=== PATIENT | female | born 1950 | race Caucasian/White ===

== ENCOUNTER → 2018-01-18 07:39 | Outpatient (CLI) | payer OTHER, MEDICARE, SELFPAY ==
[2018-01-18 09:11] LABS: Hemoglobin A1C 8.1 % (0.0-7.0)
[2018-01-19 19:41] LABS: Vitamin B12 851 pg/mL (232-1245); Vitamin D 25 Hydroxy 27.5 ng/mL (30.0-100.0)
== END ==
PROVIDERS: Visit Provider Internal Medicine Adolescent Medicine
DX: E53.8 Deficiency of other specified B group vitamins (principal); E55.9 Vitamin D deficiency, unspecified; E11.9 Type 2 diabetes mellitus without complications
CPT/HCPCS: 82607; 82652; 83036

== ENCOUNTER → 2018-07-09 07:07 | Outpatient (CLI) | payer OTHER, MEDICARE, SELFPAY ==
[2018-07-09 07:32] LABS: Basophils # 0.1 K/mm3 (0-0.2); Basophils % 0.7 % (0.1-2.0); Eosinophils # 0.2 K/mm3 (0.0-0.4); Eosinophils % 3.1 % (0.1-12.0); Hematocrit 45.7 % (37.0-47.0); Hemoglobin 14.9 g/dL (12.2-16.2); Lymphocytes % 28.9 % (10-50); Mean Corpuscular HGB Conc 32.6 g/dL (31.8-35.4); Mean Corpuscular Hemoglobin 27.9 pg (27.0-31.2); Mean Corpuscular Volume 85.6 fl (81-99); Mean Platelet Volume 7.1 fl (7.4-10.4); Monocytes # 0.4 K/mm3 (0.1-1.0); Neutrophils # 4.4 K/mm3 (1.8-7.8); Neutrophils % 62.2 % (37.0-80.0); Platelet Count 198 K/mm3 (142-424); Red Blood Count 5.34 M/mm3 (4.20-5.40); Red Cell Distribution Width 14.7 % (11.5-17.5); White Blood Count 7.1 K/mm3 (4.8-10.8)
[2018-07-09 09:37] LABS: Alanine Aminotransferase 94 U/L (12-78); Albumin Level 3.8 gm/dL (3.4-5.0); Albumin/Globulin Ratio 1.1 (1.1-1.8); Alkaline Phosphatase 78 U/L (46-116); Anion Gap 11.3 mEq/L (5-15); Aspartate Amino Transferase 58 U/L (15-37); Bilirubin,Total 0.4 mg/dL (0.2-1.0); Blood Urea Nitrogen 17 mg/dL (7-18); Calcium 9.6 mg/dL (8.5-10.1); Carbon Dioxide 32 mmol/L (21.0-32.0); Chloride 102 mmol/L (98-107); Creatinine,Serum 0.85 mg/dL (0.55-1.02); Estimated Glomerular Filt Rate 67 ml/min (>60); GFR (African American) 80 ML/MIN (>60); Globulin 3.6 gm/dl (1.3-3.2); Glucose 161 mg/dL (74-106); Potassium 4.3 mmoL/L (3.5-5.1); Sodium 141 mmol/L (136-145); Thyroid Stimulating Hormone 0.05 uIU/ml (0.358-3.740); Total Protein,Serum 7.4 gm/dL (6.4-8.2)
[2018-07-09 09:46] LABS: Hemoglobin A1C 7.3 % (0.0-7.0)
[2018-07-10 09:19] LABS: Vitamin D 25 Hydroxy 29.7 ng/mL (30.0-100.0)
== END ==
PROVIDERS: Visit Provider Internal Medicine Adolescent Medicine
DX: E78.5 Hyperlipidemia, unspecified (principal); E11.9 Type 2 diabetes mellitus without complications; E03.9 Hypothyroidism, unspecified; E55.9 Vitamin D deficiency, unspecified; M15.0 Primary generalized (osteo)arthritis
CPT/HCPCS: 36415; 80053; 82652; 83036; 84443; 85025

== ENCOUNTER → 2018-07-29 12:46 | Outpatient (CLI) | payer OTHER, MEDICARE, SELFPAY ==
--- NOTE | 2018-07-29 12:57 | XR_ITS ---
XR DEXA axial skeleton HISTORY: ITS.REASON: POSTMENOPAUSAL ORDERING PHYSICIAN: Kevin Dos Santos MD PATIENT AGE: 67 years COMPARISON: 05/27/2015 FINDINGS: The BMD measured at the Forearm Radius 33% is 0.881 g/cm squared with a T score of -0.1. This is considered Normal according to the World Health Organization criteria. Fracture risk is Low. The L1 L4 density has a T score of 1.6 unchanged from the previous exam.. IMPRESSION: Normal bone density.
== END ==
PROVIDERS: PCP Internal Medicine Adolescent Medicine; Visit Provider Internal Medicine Adolescent Medicine
DX: Z13.820 Encounter for screening for osteoporosis (principal); Z78.0 Asymptomatic menopausal state
CPT/HCPCS: 77080

== ENCOUNTER → 2018-11-18 07:04 | Outpatient (CLI) | payer OTHER, MEDICARE, SELFPAY ==
[2018-11-18 08:00] LABS: Basophils # 0.1 K/mm3 (0-0.2); Basophils % 0.7 % (0.1-2.0); Eosinophils # 0.2 K/mm3 (0.0-0.4); Eosinophils % 3.5 % (0.1-12.0); Hematocrit 44.7 % (37.0-47.0); Hemoglobin 14.9 g/dL (12.2-16.2); Lymphocytes # 2.3 K/mm3 (0.7-4.5); Mean Corpuscular HGB Conc 33.2 g/dL (31.8-35.4); Mean Corpuscular Hemoglobin 28.3 pg (27.0-31.2); Mean Corpuscular Volume 85.2 fl (81-99); Mean Platelet Volume 7.3 fl (7.4-10.4); Monocytes # 0.3 K/mm3 (0.1-1.0); Monocytes % 4.8 % (1.7-9.3); Neutrophils # 3.8 K/mm3 (1.8-7.8); Neutrophils % 57.1 % (37.0-80.0); Platelet Count 211 K/mm3 (142-424); Red Blood Count 5.25 M/mm3 (4.20-5.40); Red Cell Distribution Width 14.5 % (11.5-17.5); White Blood Count 6.7 K/mm3 (4.8-10.8)
[2018-11-18 09:18] LABS: Alanine Aminotransferase 90 U/L (12-78); Albumin Level 3.6 gm/dL (3.4-5.0); Alkaline Phosphatase 74 U/L (46-116); Anion Gap 13.5 mEq/L (5-15); Aspartate Amino Transferase 57 U/L (15-37); Bilirubin,Total 0.4 mg/dL (0.2-1.0); Blood Urea Nitrogen 20 mg/dL (7-18); Calcium 9.8 mg/dL (8.5-10.1); Carbon Dioxide 31 mmol/L (21.0-32.0); Chloride 103 mmol/L (98-107); Chol/HDL Ratio 5.5 (1-3.5); Cholesterol 175 mg/dL (140-200); Creatinine,Serum 0.76 mg/dL (0.55-1.02); Estimated Glomerular Filt Rate 75 ml/min (>60); GFR (African American) 91 ML/MIN (>60); Globulin 3.6 gm/dl (1.3-3.2); Glucose 177 mg/dL (74-106); HDL Cholesterol 32 mg/dL (29-89); LDL Cholesterol 80 mg/dL (0-130); Potassium 4.5 mmoL/L (3.5-5.1); Sodium 143 mmol/L (136-145); Total Protein,Serum 7.2 gm/dL (6.4-8.2); Triglycerides 313 mg/dL (30-200); VLDL Cholesterol 63 mg/dL (0-40)
[2018-11-18 09:51] LABS: Hemoglobin A1C 7.7 % (0.0-7.0)
== END ==
PROVIDERS: PCP Internal Medicine Adolescent Medicine; Visit Provider Internal Medicine Adolescent Medicine
DX: E78.5 Hyperlipidemia, unspecified (principal); E11.9 Type 2 diabetes mellitus without complications; E03.9 Hypothyroidism, unspecified; M15.0 Primary generalized (osteo)arthritis
CPT/HCPCS: 36415; 80053; 80061; 83036; 84443; 85025

== ENCOUNTER → 2019-03-20 07:03 | Outpatient (CLI) | payer OTHER, MEDICARE, SELFPAY ==
[2019-03-20 08:33] LABS: Hemoglobin A1C 8.1 % (0.0-7.0)
[2019-03-20 08:58] LABS: Free Thyroxine Index 3.8 ug/dL (5.93-13.13); T4 (Thyroxine) 11.2 ug/dl (4.7-13.3); Thyroid Stimulating Hormone 0.09 uIU/ml (0.358-3.740); Triiodothryronine (T3) Uptake 34 % (31-39)
[2019-03-21 15:04] LABS: Vitamin D 25 Hydroxy 26.2 ng/mL (30.0-100.0)
== END ==
PROVIDERS: Visit Provider Internal Medicine Adolescent Medicine
DX: E11.9 Type 2 diabetes mellitus without complications (principal); E03.9 Hypothyroidism, unspecified; M15.0 Primary generalized (osteo)arthritis
CPT/HCPCS: 36415; 82652; 83036; 84436; 84443; 84479

== ENCOUNTER → 2019-06-23 07:04 | Outpatient (CLI) | payer OTHER, MEDICARE, SELFPAY ==
[2019-06-23 08:03] LABS: Basophils % 0.6 % (0.1-2.0); Eosinophils # 0.2 K/mm3 (0.0-0.4); Eosinophils % 3.3 % (0.1-12.0); Hematocrit 43.8 % (37.0-47.0); Hemoglobin 14.5 g/dL (12.2-16.2); Lymphocytes % 32.1 % (10-50); Mean Corpuscular Hemoglobin 28.9 pg (27.0-31.2); Mean Corpuscular Volume 87.7 fl (81-99); Mean Platelet Volume 8.1 fl (7.4-10.4); Monocytes # 0.3 K/mm3 (0.1-1.0); Monocytes % 4.8 % (1.7-9.3); Neutrophils # 3.6 K/mm3 (1.8-7.8); Neutrophils % 59.2 % (37.0-80.0); Platelet Count 205 K/mm3 (142-424); Red Blood Count 4.99 M/mm3 (4.20-5.40); Red Cell Distribution Width 14.6 % (11.5-17.5); White Blood Count 6.1 K/mm3 (4.8-10.8)
[2019-06-23 10:59] LABS: Alanine Aminotransferase 110 U/L (12-78); Albumin Level 3.6 gm/dL (3.4-5.0); Albumin/Globulin Ratio 1.1 (1.1-1.8); Alkaline Phosphatase 70 U/L (46-116); Anion Gap 11.9 mEq/L (5-15); Aspartate Amino Transferase 65 U/L (15-37); Bilirubin,Total 0.4 mg/dL (0.2-1.0); Blood Urea Nitrogen 16 mg/dL (7-18); Calcium 9.4 mg/dL (8.5-10.1); Carbon Dioxide 29 mmol/L (21.0-32.0); Chloride 103 mmol/L (98-107); Chol/HDL Ratio 4.5 (1-3.5); Cholesterol 150 mg/dL (140-200); Creatinine,Serum 0.75 mg/dL (0.55-1.02); Estimated Glomerular Filt Rate 77 ml/min (>60); GFR (African American) 93 ML/MIN (>60); Globulin 3.2 gm/dl (1.3-3.2); Glucose 158 mg/dL (74-106); HDL Cholesterol 33 mg/dL (29-89); LDL Cholesterol 68 mg/dL (0-130); Potassium 3.9 mmoL/L (3.5-5.1); Sodium 140 mmol/L (136-145); Thyroid Stimulating Hormone 0.12 uIU/ml (0.358-3.740); Total Protein,Serum 6.8 gm/dL (6.4-8.2); Triglycerides 244 mg/dL (30-200); VLDL Cholesterol 49 mg/dL (0-40)
[2019-06-23 13:32] LABS: Hemoglobin A1C 7.4 % (0.0-7.0)
[2019-06-24 12:58] LABS: Vitamin D 25 Hydroxy 26.3 ng/mL (30.0-100.0)
== END ==
PROVIDERS: Visit Provider Internal Medicine Adolescent Medicine
DX: E78.5 Hyperlipidemia, unspecified (principal); E11.9 Type 2 diabetes mellitus without complications; E03.9 Hypothyroidism, unspecified; E55.9 Vitamin D deficiency, unspecified
CPT/HCPCS: 36415; 80053; 80061; 82652; 83036; 84443; 85025

== ENCOUNTER → 2019-09-23 06:59 | Outpatient (CLI) | payer OTHER, MEDICARE, SELFPAY ==
[2019-09-23 07:38] LABS: Basophils # 0.1 K/mm3 (0-0.2); Basophils % 0.7 % (0.1-2.0); Eosinophils # 0.3 K/mm3 (0.0-0.4); Eosinophils % 4.8 % (0.1-12.0); Hematocrit 46.5 % (37.0-47.0); Lymphocytes # 2.1 K/mm3 (0.7-4.5); Lymphocytes % 31.4 % (10-50); Mean Corpuscular HGB Conc 32.1 g/dL (31.8-35.4); Mean Corpuscular Volume 87.1 fl (81-99); Mean Platelet Volume 8.2 fl (7.4-10.4); Monocytes # 0.3 K/mm3 (0.1-1.0); Monocytes % 4.3 % (1.7-9.3); Neutrophils % 58.8 % (37.0-80.0); Platelet Count 202 K/mm3 (142-424); Red Blood Count 5.34 M/mm3 (4.20-5.40); Red Cell Distribution Width 14.6 % (11.5-17.5); White Blood Count 6.8 K/mm3 (4.8-10.8)
[2019-09-23 08:48] LABS: Hemoglobin A1C 7.5 % (0.0-7.0)
[2019-09-23 20:55] LABS: Alanine Aminotransferase 92 U/L (12-78); Albumin Level 3.8 gm/dL (3.4-5.0); Albumin/Globulin Ratio 1.2 (1.1-1.8); Alkaline Phosphatase 77 U/L (46-116); Anion Gap 14.4 mEq/L (5-15); Aspartate Amino Transferase 65 U/L (15-37); Bilirubin,Total 0.4 mg/dL (0.2-1.0); Blood Urea Nitrogen 19 mg/dL (7-18); Calcium 9.4 mg/dL (8.5-10.1); Carbon Dioxide 30 mmol/L (21.0-32.0); Chloride 104 mmol/L (98-107); Chol/HDL Ratio 5.6 (1-3.5); Cholesterol 174 mg/dL (140-200); Estimated Glomerular Filt Rate 55 ml/min (>60); GFR (African American) 67 ML/MIN (>60); Globulin 3.1 gm/dl (1.3-3.2); Glucose 171 mg/dL (74-106); HDL Cholesterol 31 mg/dL (29-89); LDL Cholesterol 79 mg/dL (0-130); Potassium 4.4 mmoL/L (3.5-5.1); Sodium 144 mmol/L (136-145); Thyroid Stimulating Hormone 1.35 uIU/ml (0.358-3.740); Total Protein,Serum 6.9 gm/dL (6.4-8.2); Triglycerides 322 mg/dL (30-200); VLDL Cholesterol 64 mg/dL (0-40)
[2019-09-24 10:48] LABS: Vitamin D 25 Hydroxy 30.6 ng/mL (30.0-100.0)
== END ==
PROVIDERS: Visit Provider Internal Medicine Adolescent Medicine
DX: E78.5 Hyperlipidemia, unspecified (principal); E11.9 Type 2 diabetes mellitus without complications; E03.9 Hypothyroidism, unspecified; E55.9 Vitamin D deficiency, unspecified; M15.0 Primary generalized (osteo)arthritis
CPT/HCPCS: 36415; 80053; 80061; 82652; 83036; 84443; 85025

== ENCOUNTER → 2020-02-23 07:02 | Outpatient (CLI) | payer OTHER, MEDICARE, SELFPAY ==
[2020-02-23 07:51] LABS: Basophils # 0.1 K/mm3 (0-0.2); Basophils % 0.9 % (0.1-2.0); Eosinophils # 0.2 K/mm3 (0.0-0.4); Eosinophils % 2.7 % (0.1-12.0); Hematocrit 46.9 % (37.0-47.0); Hemoglobin 15.6 g/dL (12.2-16.2); Lymphocytes # 2.3 K/mm3 (0.7-4.5); Lymphocytes % 30.2 % (10-50); Mean Corpuscular HGB Conc 33.2 g/dL (31.8-35.4); Mean Corpuscular Volume 87.2 fl (81-99); Mean Platelet Volume 8.1 fl (7.4-10.4); Monocytes # 0.3 K/mm3 (0.1-1.0); Monocytes % 4.3 % (1.7-9.3); Neutrophils # 4.7 K/mm3 (1.8-7.8); Platelet Count 213 K/mm3 (142-424); Red Blood Count 5.38 M/mm3 (4.20-5.40); White Blood Count 7.6 K/mm3 (4.8-10.8)
[2020-02-23 10:24] LABS: Chloride 100 mmol/L (98-107); Potassium 4.3 mmoL/L (3.5-5.1); Sodium 138 mmol/L (136-145)
[2020-02-23 10:26] LABS: Blood Urea Nitrogen 19 mg/dl (7-17); Estimated Glomerular Filt Rate 62 ml/min (>60); GFR (African American) 75 ML/MIN (>60)
[2020-02-23 10:27] LABS: Alanine Aminotransferase 108 U/L (12-78); Albumin Level 4.2 g/dl (3.5-5.0); Albumin/Globulin Ratio 1.4 (1.1-1.8); Alkaline Phosphatase 68 U/L (38-126); Anion Gap 10.3 mEq/L (5-15); Aspartate Amino Transferase 106 U/L (14-36); Bilirubin,Total 0.6 mg/dl (0.2-1.3); Carbon Dioxide 32 mmol/L (22.0-30.0); Cholesterol 180 mg/dl (140-200); Total Protein,Serum 7.2 g/dl (6.3-8.2); Triglycerides 334 mg/dl (30-150); VLDL Cholesterol 67 mg/dL (0-40)
[2020-02-23 10:28] LABS: Calcium 9.7 mg/dl (8.4-10.2); Chol/HDL Ratio 5.5 (1-3.5); Glucose 162 mg/dl (74-100); HDL Cholesterol 33 mg/dl (40-60)
[2020-02-23 10:38] LABS: Direct LDL Cholesterol 85.75 mg/dL (100-129)
[2020-02-23 10:56] LABS: Thyroid Stimulating Hormone 6.89 uIU/mL (0.465-4.68)
[2020-02-23 12:08] LABS: 25-OH Vitamin D, Total 35.6 ng/mL (30-100)
[2020-02-23 12:14] LABS: Hemoglobin A1C 8.1 % (4.0-6.0)
[2020-02-25 20:21] LABS: Coronavirus 19 IgG Antibody Positive (Negative); Coronavirus 19 IgM Antibody Negative (Negative)
== END ==
PROVIDERS: Visit Provider Internal Medicine Adolescent Medicine
DX: E11.9 Type 2 diabetes mellitus without complications (principal); E78.5 Hyperlipidemia, unspecified; E03.9 Hypothyroidism, unspecified; E55.9 Vitamin D deficiency, unspecified; Z20.828 Contact with and (suspected) exposure to other viral communicable diseases
CPT/HCPCS: 36415; 80053; 80061; 82306; 83036; 84443; 85025; 86328

== ENCOUNTER → 2020-05-07 14:15 | Outpatient (CLI) | payer OTHER, MEDICARE, SELFPAY ==
[2020-05-07 14:48] LABS: Hemoglobin A1C 8.2 % (4.0-6.0)
[2020-05-07 18:16] LABS: Coronavirus 19 IgG Antibody Positive (Negative); Coronavirus 19 IgM Antibody Negative (Negative)
== END ==
PROVIDERS: Visit Provider Internal Medicine Adolescent Medicine
DX: Z20.828 Contact with and (suspected) exposure to other viral communicable diseases (principal); U07.1 COVID-19; R73.9 Hyperglycemia, unspecified
CPT/HCPCS: 83036; 86328

== ENCOUNTER → 2020-12-06 07:28 | Outpatient (CLI) | payer OTHER, MEDICARE, SELFPAY ==
[2020-12-06 08:28] LABS: Basophils # 0.1 K/mm3 (0-0.2); Basophils % 0.8 % (0.1-2.0); Eosinophils # 0.2 K/mm3 (0.0-0.4); Eosinophils % 2.7 % (0.1-12.0); Hematocrit 48.6 % (37.0-47.0); Hemoglobin 15.7 g/dL (12.2-16.2); Lymphocytes # 1.7 K/mm3 (0.7-4.5); Lymphocytes % 23.2 % (10-50); Mean Corpuscular HGB Conc 32.3 g/dL (31.8-35.4); Mean Corpuscular Hemoglobin 27.2 pg (27.0-31.2); Mean Corpuscular Volume 84.1 fl (81-99); Mean Platelet Volume 7.7 fl (7.4-10.4); Monocytes # 0.3 K/mm3 (0.1-1.0); Monocytes % 4.6 % (1.7-9.3); Neutrophils # 5.1 K/mm3 (1.8-7.8); Neutrophils % 68.7 % (37.0-80.0); Platelet Count 206 K/mm3 (142-424); Red Blood Count 5.78 M/mm3 (4.20-5.40); Red Cell Distribution Width 15.5 % (11.5-17.5); White Blood Count 7.4 K/mm3 (4.8-10.8)
[2020-12-06 08:33] LABS: Chloride 103 mmol/L (98-107); Sodium 139 mmol/L (136-145)
[2020-12-06 08:34] LABS: Potassium 4.4 mmoL/L (3.5-5.1)
[2020-12-06 08:36] LABS: Alanine Aminotransferase 66 U/L (12-78); Albumin Level 4.4 g/dl (3.5-5.0); Albumin/Globulin Ratio 1.6 (1.1-1.8); Alkaline Phosphatase 77 U/L (38-126); Anion Gap 10.4 mEq/L (5-15); Aspartate Amino Transferase 68 U/L (14-36); Bilirubin,Total 0.5 mg/dl (0.2-1.3); Blood Urea Nitrogen 23 mg/dl (7-17); Carbon Dioxide 30 mmol/L (22.0-30.0); Cholesterol 176 mg/dl (140-200); Estimated Glomerular Filt Rate 71 ml/min (>60); GFR (African American) 86 ML/MIN (>60); Globulin 2.7 g/dL (1.3-3.2); Total Protein,Serum 7.1 g/dl (6.3-8.2); Triglycerides 326 mg/dl (30-150); VLDL Cholesterol 65 mg/dL (0-40)
[2020-12-06 08:37] LABS: Calcium 9.9 mg/dl (8.4-10.2); Chol/HDL Ratio 5.7 (1-3.5); Glucose 154 mg/dl (74-100); HDL Cholesterol 31 mg/dl (40-60)
[2020-12-06 08:48] LABS: Direct LDL Cholesterol 74.14 mg/dL (100-129)
[2020-12-06 09:03] LABS: Hemoglobin A1C 7.5 % (4.0-6.0)
[2020-12-06 09:08] LABS: Thyroid Stimulating Hormone 0.18 uIU/mL (0.465-4.68)
== END ==
PROVIDERS: Visit Provider Internal Medicine Adolescent Medicine
DX: E11.9 Type 2 diabetes mellitus without complications (principal); E78.5 Hyperlipidemia, unspecified; E03.9 Hypothyroidism, unspecified
CPT/HCPCS: 36415; 80053; 80061; 83036; 84443; 85025

== ENCOUNTER → 2021-06-07 07:17 | Outpatient (CLI) | payer OTHER, MEDICARE, SELFPAY ==
[2021-06-07 07:38] LABS: Basophils # 0.1 K/mm3 (0-0.2); Basophils % 1.1 % (0.1-2.0); Eosinophils # 0.2 K/mm3 (0.0-0.4); Eosinophils % 2.5 % (0.1-12.0); Hematocrit 49.8 % (37.0-47.0); Hemoglobin 16.2 g/dL (12.2-16.2); Lymphocytes % 25.9 % (10-50); Mean Corpuscular HGB Conc 32.5 g/dL (31.8-35.4); Mean Corpuscular Hemoglobin 28.1 pg (27.0-31.2); Mean Corpuscular Volume 86.4 fl (81-99); Mean Platelet Volume 7.8 fl (7.4-10.4); Monocytes # 0.3 K/mm3 (0.1-1.0); Monocytes % 4.4 % (1.7-9.3); Neutrophils % 66.1 % (37.0-80.0); Platelet Count 238 K/mm3 (142-424); Red Blood Count 5.76 M/mm3 (4.20-5.40); Red Cell Distribution Width 15.4 % (11.5-17.5); White Blood Count 7.5 K/mm3 (4.8-10.8)
[2021-06-07 08:41] LABS: Alanine Aminotransferase 42 U/L (12-78); Albumin/Globulin Ratio 1.3 (1.1-1.8); Alkaline Phosphatase 89 U/L (38-126); Anion Gap 9.5 mEq/L (5-15); Aspartate Amino Transferase 44 U/L (14-36); Bilirubin,Total 0.3 mg/dl (0.2-1.3); Blood Urea Nitrogen 18 mg/dl (7-17); Calcium 9.3 mg/dl (8.4-10.2); Carbon Dioxide 33 mmol/L (22.0-30.0); Chloride 101 mmol/L (98-107); Chol/HDL Ratio 7.1 (1-3.5); Cholesterol 200 mg/dl (140-200); Estimated Glomerular Filt Rate 82 ml/min (>60); GFR (African American) 100 ML/MIN (>60); Glucose 160 mg/dl (74-100); HDL Cholesterol 28 mg/dl (40-60); Potassium 4.5 mmoL/L (3.5-5.1); Sodium 139 mmol/L (136-145)
[2021-06-07 08:52] LABS: Direct LDL Cholesterol 66.59 mg/dL (100-129); Triglycerides 661 mg/dl (30-150)
[2021-06-07 09:12] LABS: Thyroid Stimulating Hormone 0.05 uIU/mL (0.465-4.68)
[2021-06-07 09:19] LABS: Hemoglobin A1C 6.9 % (4.0-6.0)
== END ==
PROVIDERS: Visit Provider Internal Medicine Adolescent Medicine
DX: E11.9 Type 2 diabetes mellitus without complications (principal); E78.5 Hyperlipidemia, unspecified; E03.9 Hypothyroidism, unspecified; E55.9 Vitamin D deficiency, unspecified
CPT/HCPCS: 36415; 80053; 80061; 82306; 83036; 84443; 85025

== ENCOUNTER → 2021-12-05 07:06 | Outpatient (CLI) | payer OTHER, MEDICARE, SELFPAY ==
[2021-12-05 07:51] LABS: Basophils # 0.1 K/mm3 (0-0.2); Basophils % 1.3 % (0.1-2.0); Eosinophils # 0.2 K/mm3 (0.0-0.4); Hematocrit 47.9 % (37.0-47.0); Hemoglobin 15.7 g/dL (12.2-16.2); Lymphocytes # 1.9 K/mm3 (0.7-4.5); Lymphocytes % 27.7 % (10-50); Mean Corpuscular HGB Conc 32.8 g/dL (31.8-35.4); Mean Corpuscular Hemoglobin 28.1 pg (27.0-31.2); Mean Corpuscular Volume 85.7 fl (81-99); Mean Platelet Volume 8.3 fl (7.4-10.4); Monocytes # 0.4 K/mm3 (0.1-1.0); Monocytes % 5.3 % (1.7-9.3); Neutrophils # 4.2 K/mm3 (1.8-7.8); Neutrophils % 62.6 % (37.0-80.0); Platelet Count 206 K/mm3 (142-424); Red Blood Count 5.58 M/mm3 (4.20-5.40); Red Cell Distribution Width 15.7 % (11.5-17.5); White Blood Count 6.7 K/mm3 (4.8-10.8)
[2021-12-05 08:49] LABS: Alanine Aminotransferase 41 U/L (12-78); Albumin Level 4.4 g/dl (3.5-5.0); Albumin/Globulin Ratio 1.6 (1.1-1.8); Alkaline Phosphatase 72 U/L (38-126); Anion Gap 13.7 mEq/L (5-15); Aspartate Amino Transferase 45 U/L (14-36); Bilirubin,Total 0.7 mg/dl (0.2-1.3); Blood Urea Nitrogen 24 mg/dl (7-17); Calcium 9.4 mg/dl (8.4-10.2); Carbon Dioxide 29 mmol/L (22.0-30.0); Chloride 99 mmol/L (98-107); Chol/HDL Ratio 3.9 (1-3.5); Cholesterol 104 mg/dl (140-200); Estimated Glomerular Filt Rate 71 ml/min (>60); GFR (African American) 85 ML/MIN (>60); Globulin 2.7 g/dL (1.3-3.2); Glucose 150 mg/dl (74-100); HDL Cholesterol 27 mg/dl (40-60); Potassium 3.7 mmoL/L (3.5-5.1); Sodium 138 mmol/L (136-145); Total Protein,Serum 7.1 g/dl (6.3-8.2); Triglycerides 296 mg/dl (30-150); VLDL Cholesterol 59 mg/dL (0-40)
[2021-12-05 09:16] LABS: Direct LDL Cholesterol < 30.00 mg/dL (100-129)
[2021-12-05 09:19] LABS: Thyroid Stimulating Hormone 0.27 uIU/mL (0.465-4.68)
[2021-12-05 14:39] LABS: Hemoglobin A1C 7.7 % (4.0-6.0)
== END ==
PROVIDERS: Visit Provider Internal Medicine Adolescent Medicine
DX: E03.9 Hypothyroidism, unspecified (principal); E11.9 Type 2 diabetes mellitus without complications; E78.5 Hyperlipidemia, unspecified; E55.9 Vitamin D deficiency, unspecified
CPT/HCPCS: 36415; 80053; 80061; 82306; 83036; 84443; 85025

== ENCOUNTER → 2022-06-09 07:08 | Outpatient (CLI) | payer OTHER, MEDICARE, SELFPAY ==
[2022-06-09 08:54] LABS: Basophils # 0.1 K/mm3 (0-0.2); Basophils % 1.3 % (0.1-2.0); Eosinophils # 0.2 K/mm3 (0.0-0.4); Eosinophils % 2.9 % (0.1-12.0); Hematocrit 48.8 % (37.0-47.0); Hemoglobin 15.6 g/dL (12.2-16.2); Lymphocytes # 1.9 K/mm3 (0.7-4.5); Lymphocytes % 28.1 % (10-50); Mean Corpuscular HGB Conc 31.9 g/dL (31.8-35.4); Mean Corpuscular Hemoglobin 27.7 pg (27.0-31.2); Mean Platelet Volume 8.1 fl (7.4-10.4); Monocytes # 0.4 K/mm3 (0.1-1.0); Monocytes % 5.2 % (1.7-9.3); Neutrophils # 4.2 K/mm3 (1.8-7.8); Neutrophils % 62.5 % (37.0-80.0); Platelet Count 213 K/mm3 (142-424); Red Blood Count 5.61 M/mm3 (4.20-5.40); Red Cell Distribution Width 15.8 % (11.5-17.5); White Blood Count 6.8 K/mm3 (4.8-10.8)
[2022-06-09 08:59] LABS: Hemoglobin A1C 7.4 % (4.0-6.0)
[2022-06-09 09:13] LABS: Alanine Aminotransferase 33 U/L (12-78); Albumin/Globulin Ratio 1.5 (1.1-1.8); Alkaline Phosphatase 86 U/L (38-126); Anion Gap 13.1 mEq/L (5-15); Aspartate Amino Transferase 38 U/L (14-36); Bilirubin,Total 0.3 mg/dl (0.2-1.3); Blood Urea Nitrogen 19 mg/dl (7-17); Calcium 9.1 mg/dl (8.4-10.2); Carbon Dioxide 33 mmol/L (22.0-30.0); Chloride 100 mmol/L (98-107); Chol/HDL Ratio 3.2 (1-3.5); Cholesterol 109 mg/dl (140-200); Estimated Glomerular Filt Rate 71 ml/min (>60); GFR (African American) 85 ML/MIN (>60); Globulin 2.6 g/dL (1.3-3.2); Glucose 139 mg/dl (74-100); HDL Cholesterol 34 mg/dl (40-60); Potassium 4.1 mmoL/L (3.5-5.1); Sodium 142 mmol/L (136-145); Total Protein,Serum 6.6 g/dl (6.3-8.2); Triglycerides 149 mg/dl (30-150); VLDL Cholesterol 30 mg/dL (0-40)
[2022-06-09 09:23] LABS: Direct LDL Cholesterol 42.63 mg/dL (100-129)
[2022-06-09 09:42] LABS: Thyroid Stimulating Hormone 9.09 uIU/mL (0.465-4.68)
== END ==
PROVIDERS: PCP Internal Medicine Adolescent Medicine; Visit Provider Internal Medicine Adolescent Medicine
DX: I10 Essential (primary) hypertension (principal); E11.9 Type 2 diabetes mellitus without complications; E03.9 Hypothyroidism, unspecified
CPT/HCPCS: 36415; 80053; 80061; 83036; 84443; 85025

== ENCOUNTER → 2022-10-12 07:36 | Outpatient (CLI) | payer OTHER, MEDICARE, SELFPAY ==
[2022-10-12 08:38] LABS: Basophils # 0.1 K/mm3 (0-0.2); Basophils % 1.3 % (0.1-2.0); Eosinophils # 0.2 K/mm3 (0.0-0.4); Eosinophils % 3.2 % (0.1-12.0); Hematocrit 47.3 % (37.0-47.0); Hemoglobin 15.3 g/dL (12.2-16.2); Lymphocytes # 1.4 K/mm3 (0.7-4.5); Lymphocytes % 19.7 % (10-50); Mean Corpuscular HGB Conc 32.3 g/dL (31.8-35.4); Mean Corpuscular Hemoglobin 27.6 pg (27.0-31.2); Mean Corpuscular Volume 85.3 fl (81-99); Mean Platelet Volume 8.5 fl (7.4-10.4); Monocytes # 0.3 K/mm3 (0.1-1.0); Monocytes % 4.5 % (1.7-9.3); Neutrophils # 5.2 K/mm3 (1.8-7.8); Neutrophils % 71.3 % (37.0-80.0); Platelet Count 188 K/mm3 (142-424); Red Blood Count 5.55 M/mm3 (4.20-5.40); White Blood Count 7.3 K/mm3 (4.8-10.8)
[2022-10-12 08:55] LABS: Hemoglobin A1C 6.8 % (4.0-6.0)
[2022-10-12 09:04] LABS: Chloride 101 mmol/L (98-107); Potassium 4.3 mmoL/L (3.5-5.1); Sodium 139 mmol/L (136-145)
[2022-10-12 09:06] LABS: Alanine Aminotransferase 36 U/L (12-78); Aspartate Amino Transferase 41 U/L (14-36); Blood Urea Nitrogen 18 mg/dl (7-17); Estimated Glomerular Filt Rate 71 ml/min (>60); GFR (African American) 85 ML/MIN (>60)
[2022-10-12 09:07] LABS: Albumin Level 4.2 g/dl (3.5-5.0); Albumin/Globulin Ratio 1.6 (1.1-1.8); Alkaline Phosphatase 69 U/L (38-126); Anion Gap 10.3 mEq/L (5-15); Bilirubin,Total 0.4 mg/dl (0.2-1.3); Calcium 8.9 mg/dl (8.4-10.2); Carbon Dioxide 32 mmol/L (22.0-30.0); Chol/HDL Ratio 3.1 (1-3.5); Cholesterol 100 mg/dl (140-200); Globulin 2.7 g/dL (1.3-3.2); Glucose 148 mg/dl (74-100); HDL Cholesterol 32 mg/dl (40-60); Total Protein,Serum 6.9 g/dl (6.3-8.2); Triglycerides 174 mg/dl (30-150); VLDL Cholesterol 35 mg/dL (0-40)
[2022-10-12 09:18] LABS: Direct LDL Cholesterol 37.39 mg/dL (100-129)
[2022-10-12 09:25] LABS: 25-OH Vitamin D, Total 28.3 ng/mL (30-100)
== END ==
PROVIDERS: PCP Internal Medicine Adolescent Medicine; Visit Provider Internal Medicine Adolescent Medicine
DX: E11.9 Type 2 diabetes mellitus without complications (principal); E78.5 Hyperlipidemia, unspecified; E55.9 Vitamin D deficiency, unspecified
CPT/HCPCS: 36415; 80053; 80061; 82306; 83036; 85025

== ENCOUNTER → 2023-01-12 07:11 | Outpatient (CLI) | payer OTHER, MEDICARE, SELFPAY ==
[2023-01-12 08:32] LABS: Chloride 96 mmol/L (98-107); Potassium 4.2 mmoL/L (3.5-5.1); Sodium 139 mmol/L (136-145)
[2023-01-12 08:34] LABS: Blood Urea Nitrogen 21 mg/dl (7-17); Estimated Glomerular Filt Rate 54 ml/min (>60); GFR (African American) 66 ML/MIN (>60)
[2023-01-12 08:35] LABS: Alanine Aminotransferase 31 U/L (12-78); Albumin/Globulin Ratio 1.5 (1.1-1.8); Alkaline Phosphatase 89 U/L (38-126); Anion Gap 14.2 mEq/L (5-15); Aspartate Amino Transferase 40 U/L (14-36); Bilirubin,Total 0.2 mg/dl (0.2-1.3); Calcium 9.5 mg/dl (8.4-10.2); Carbon Dioxide 33 mmol/L (22.0-30.0); Chol/HDL Ratio 4.1 (1-3.5); Cholesterol 123 mg/dl (140-200); Globulin 2.6 g/dL (1.3-3.2); Glucose 163 mg/dl (74-100); HDL Cholesterol 30 mg/dl (40-60); Total Protein,Serum 6.6 g/dl (6.3-8.2)
[2023-01-12 08:46] LABS: Direct LDL Cholesterol 34.91 mg/dL (100-129)
[2023-01-12 08:53] LABS: 25-OH Vitamin D, Total 29.8 ng/mL (30-100)
[2023-01-12 08:55] LABS: Triglycerides 654 mg/dl (30-150)
[2023-01-12 09:49] LABS: Basophils # 0.1 K/mm3 (0-0.2); Basophils % 0.8 % (0.1-2.0); Eosinophils # 0.2 K/mm3 (0.0-0.4); Eosinophils % 3.5 % (0.1-12.0); Hematocrit 45.1 % (37.0-47.0); Hemoglobin 14.8 g/dL (12.2-16.2); Lymphocytes # 1.8 K/mm3 (0.7-4.5); Lymphocytes % 27.4 % (10-50); Mean Corpuscular HGB Conc 32.7 g/dL (31.8-35.4); Mean Corpuscular Hemoglobin 28.1 pg (27.0-31.2); Mean Platelet Volume 8.8 fl (7.4-10.4); Monocytes # 0.4 K/mm3 (0.1-1.0); Monocytes % 5.6 % (1.7-9.3); Neutrophils % 62.7 % (37.0-80.0); Platelet Count 198 K/mm3 (142-424); Red Blood Count 5.24 M/mm3 (4.20-5.40); White Blood Count 6.4 K/mm3 (4.8-10.8)
[2023-01-12 12:24] LABS: Hemoglobin A1C 6.8 % (4.0-6.0)
== END ==
PROVIDERS: PCP Internal Medicine Adolescent Medicine; Visit Provider Internal Medicine Adolescent Medicine
DX: E11.9 Type 2 diabetes mellitus without complications (principal); E78.5 Hyperlipidemia, unspecified; E55.9 Vitamin D deficiency, unspecified
CPT/HCPCS: 36415; 80053; 80061; 82306; 83036; 85025

== ENCOUNTER → 2023-03-07 16:21 | Outpatient (CLI) | payer OTHER, MEDICARE, SELFPAY ==
--- NOTE | 2023-03-07 16:25 | CA_ITS ---
FINAL REPORT TECHNIQUE: Multiple transverse and longitudinal images were performed of the right femoral-popliteal deep venous system with augmentation and compression maneuvers. CLINICAL HISTORY: RLE edema, Hx rt knee dysfunction COMPARISON: None FINDINGS: Right lower extremity duplex ultrasound demonstrates normal flow in the deep venous system. There is no abnormal echogenicity to suggest thrombus. There is normal compression and augmentation. Right popliteal cyst is noted. IMPRESSION: No evidence of right DVT. Popliteal cyst. Reviewed, Interpreted and Dictated by Darryl Carter III, MD Transcribed by Brinda Pierson Authenticated and [facility]
== END ==
PROVIDERS: PCP Internal Medicine Adolescent Medicine; Visit Provider Nurse Practitioner Family
DX: R60.0 Localized edema (principal)
CPT/HCPCS: 93971

== ENCOUNTER → 2023-03-08 09:31 | Outpatient (CLI) | payer OTHER, MEDICARE, SELFPAY ==
[2023-03-08 09:47] LABS: Basophils % 0.6 % (0.1-2.0); Eosinophils # 0.2 K/mm3 (0.0-0.4); Eosinophils % 3.2 % (0.1-12.0); Hematocrit 48.4 % (37.0-47.0); Hemoglobin 15.3 g/dL (12.2-16.2); Lymphocytes # 1.6 K/mm3 (0.7-4.5); Lymphocytes % 24.2 % (10-50); Mean Corpuscular HGB Conc 31.6 g/dL (31.8-35.4); Mean Corpuscular Hemoglobin 26.6 pg (27.0-31.2); Mean Corpuscular Volume 84.1 fl (81-99); Mean Platelet Volume 8.1 fl (7.4-10.4); Monocytes # 0.3 K/mm3 (0.1-1.0); Monocytes % 4.7 % (1.7-9.3); Neutrophils # 4.3 K/mm3 (1.8-7.8); Neutrophils % 67.3 % (37.0-80.0); Platelet Count 194 K/mm3 (142-424); Red Blood Count 5.75 M/mm3 (4.20-5.40); Red Cell Distribution Width 15.9 % (11.5-17.5); White Blood Count 6.4 K/mm3 (4.8-10.8)
[2023-03-08 10:28] LABS: Alanine Aminotransferase 32 U/L (12-78); Albumin Level 4.5 g/dl (3.5-5.0); Albumin/Globulin Ratio 1.7 (1.1-1.8); Alkaline Phosphatase 71 U/L (38-126); Anion Gap 11.6 mEq/L (5-15); Aspartate Amino Transferase 36 U/L (14-36); Bilirubin,Total 0.4 mg/dl (0.2-1.3); Blood Urea Nitrogen 19 mg/dl (7-17); Calcium 9.7 mg/dl (8.4-10.2); Carbon Dioxide 32 mmol/L (22.0-30.0); Chloride 100 mmol/L (98-107); Estimated Glomerular Filt Rate 54 ml/min (>60); GFR (African American) 66 ML/MIN (>60); Globulin 2.7 g/dL (1.3-3.2); Glucose 199 mg/dl (74-100); Potassium 4.6 mmoL/L (3.5-5.1); Sodium 139 mmol/L (136-145); Total Protein,Serum 7.2 g/dl (6.3-8.2)
[2023-03-08 10:34] LABS: C-Reactive Protein 1.1 mg/L (0-4)
[2023-03-08 11:27] LABS: Erythrocyte Sedimentation Rate 4 mm/hr (0-30)
== END ==
PROVIDERS: PCP Internal Medicine Adolescent Medicine; Visit Provider Nurse Practitioner Family
DX: M71.20 Synovial cyst of popliteal space [Baker], unspecified knee (principal); R60.0 Localized edema
CPT/HCPCS: 36415; 80053; 85025; 85651; 86140

== ENCOUNTER → 2023-06-15 07:16 | Outpatient (CLI) | payer OTHER, MEDICARE, SELFPAY ==
[2023-06-15 08:16] LABS: Basophils % 0.7 % (0.1-2.0); Eosinophils # 0.2 K/mm3 (0.0-0.4); Eosinophils % 3.3 % (0.1-12.0); Hematocrit 44.8 % (37.0-47.0); Hemoglobin 15.4 g/dL (12.2-16.2); Lymphocytes # 1.7 K/mm3 (0.7-4.5); Lymphocytes % 26.8 % (10-50); Mean Corpuscular HGB Conc 34.3 g/dL (31.8-35.4); Mean Corpuscular Hemoglobin 29.1 pg (27.0-31.2); Mean Corpuscular Volume 84.7 fl (81-99); Mean Platelet Volume 8.2 fl (7.4-10.4); Monocytes # 0.4 K/mm3 (0.1-1.0); Monocytes % 5.8 % (1.7-9.3); Neutrophils # 4.1 K/mm3 (1.8-7.8); Neutrophils % 63.4 % (37.0-80.0); Platelet Count 164 K/mm3 (142-424); Red Blood Count 5.29 M/mm3 (4.20-5.40); Red Cell Distribution Width 16.1 % (11.5-17.5); White Blood Count 6.5 K/mm3 (4.8-10.8)
[2023-06-15 08:23] LABS: Chloride 101 mmol/L (98-107); Sodium 139 mmol/L (136-145)
[2023-06-15 08:26] LABS: Alanine Aminotransferase 37 U/L (12-78); Albumin Level 4.1 g/dl (3.5-5.0); Albumin/Globulin Ratio 1.5 (1.1-1.8); Alkaline Phosphatase 62 U/L (38-126); Aspartate Amino Transferase 37 U/L (14-36); Bilirubin,Total 0.3 mg/dl (0.2-1.3); Blood Urea Nitrogen 19 mg/dl (7-17); Carbon Dioxide 32 mmol/L (22.0-30.0); Cholesterol 106 mg/dl (140-200); Estimated Glomerular Filt Rate 61 ml/min (>60); GFR (African American) 74 ML/MIN (>60); Globulin 2.7 g/dL (1.3-3.2); Total Protein,Serum 6.8 g/dl (6.3-8.2); Triglycerides 225 mg/dl (30-150); VLDL Cholesterol 45 mg/dL (0-40)
[2023-06-15 08:27] LABS: Calcium 9.2 mg/dl (8.4-10.2); Chol/HDL Ratio 3.4 (1-3.5); Glucose 141 mg/dl (74-100); HDL Cholesterol 31 mg/dl (40-60)
[2023-06-15 08:37] LABS: Direct LDL Cholesterol 42.14 mg/dL (100-129)
[2023-06-15 08:40] LABS: Free Thyroxine Index 2.7 ug/dL (5.93-13.13); T4 (Thyroxine) 7.7 ug/dl (5.53-11.0); Triiodothryronine (T3) Uptake 35 % (23.5-40.5)
[2023-06-15 08:42] LABS: 25-OH Vitamin D, Total 45.2 ng/mL (30-100)
[2023-06-15 08:54] LABS: Thyroid Stimulating Hormone 4.49 uIU/mL (0.465-4.68)
[2023-06-15 09:42] LABS: Hemoglobin A1C 7.1 % (4.0-6.0)
== END ==
PROVIDERS: PCP Internal Medicine Adolescent Medicine; Visit Provider Internal Medicine Adolescent Medicine
DX: E11.9 Type 2 diabetes mellitus without complications (principal); E78.5 Hyperlipidemia, unspecified; E03.9 Hypothyroidism, unspecified; E55.9 Vitamin D deficiency, unspecified; Z68.34 Body mass index [BMI] 34.0-34.9, adult; Z79.84 Long term (current) use of oral hypoglycemic drugs
CPT/HCPCS: 36415; 80053; 80061; 82306; 83036; 84436; 84443; 84479; 85025

== ENCOUNTER 2023-12-28 07:04 | Outpatient (CLI) | payer OTHER, MEDICARE, SELFPAY ==
[2023-12-28 07:48] LABS: Basophils # 0.1 K/mm3 (0-0.2); Basophils % 0.9 % (0.1-2.0); Eosinophils # 0.2 K/mm3 (0.0-0.4); Eosinophils % 3.2 % (0.1-12.0); Hematocrit 47.4 % (37.0-47.0); Hemoglobin 15.4 g/dL (12.2-16.2); Lymphocytes # 1.9 K/mm3 (0.7-4.5); Lymphocytes % 32.4 % (10-50); Mean Corpuscular HGB Conc 32.4 g/dL (31.8-35.4); Mean Corpuscular Hemoglobin 28.3 pg (27.0-31.2); Mean Corpuscular Volume 87.2 fl (81-99); Mean Platelet Volume 8.3 fl (7.4-10.4); Monocytes # 0.3 K/mm3 (0.1-1.0); Monocytes % 5.5 % (1.7-9.3); Neutrophils # 3.5 K/mm3 (1.8-7.8); Platelet Count 175 K/mm3 (142-424); Red Blood Count 5.44 M/mm3 (4.20-5.40); Red Cell Distribution Width 16.2 % (11.5-17.5); White Blood Count 5.9 K/mm3 (4.8-10.8)
[2023-12-28 09:33] LABS: Chloride 103 mmol/L (98-107)
[2023-12-28 09:34] LABS: Potassium 4.2 mmoL/L (3.5-5.1); Sodium 140 mmol/L (136-145)
[2023-12-28 09:36] LABS: Alanine Aminotransferase 40 U/L (12-78); Alkaline Phosphatase 70 U/L (38-126); Aspartate Amino Transferase 45 U/L (14-36); Bilirubin,Total 0.5 mg/dl (0.2-1.3); Blood Urea Nitrogen 23 mg/dl (7-17); Carbon Dioxide 32 mmol/L (22.0-30.0); Estimated Glomerular Filt Rate 61 ml/min (>60); GFR (African American) 74 ML/MIN (>60)
[2023-12-28 09:37] LABS: Albumin Level 3.9 g/dl (3.5-5.0); Albumin/Globulin Ratio 1.6 (1.1-1.8); Anion Gap 9.2 mEq/L (5-15); Calcium 9.7 mg/dl (8.4-10.2); Cholesterol 131 mg/dl (140-200); Globulin 2.4 g/dL (1.3-3.2); Glucose 156 mg/dl (74-100); HDL Cholesterol 43 mg/dl (40-60); Total Protein,Serum 6.3 g/dl (6.3-8.2); Triglycerides 255 mg/dl (30-150); VLDL Cholesterol 51 mg/dL (0-40)
[2023-12-28 09:48] LABS: Direct LDL Cholesterol 44.78 mg/dL (100-129)
[2023-12-28 09:54] LABS: 25-OH Vitamin D, Total 46.7 ng/mL (30-100)
[2023-12-28 10:07] LABS: Thyroid Stimulating Hormone 7.21 uIU/mL (0.465-4.68)
== END 2023-12-28 23:59 | disposition home or self-care (01) ==
LOC: LAB 07:05
PROVIDERS: PCP Internal Medicine Adolescent Medicine; Visit Provider Internal Medicine Adolescent Medicine
DX: E11.9 Type 2 diabetes mellitus without complications (principal); E78.5 Hyperlipidemia, unspecified; E55.9 Vitamin D deficiency, unspecified; E03.9 Hypothyroidism, unspecified; Z68.34 Body mass index [BMI] 34.0-34.9, adult
CPT/HCPCS: 36415; 80053; 80061; 82306; 83036; 84443; 85025

== ENCOUNTER 2024-04-04 07:11 | Outpatient (CLI) | payer OTHER, MEDICARE, SELFPAY ==
[2024-04-04 07:43] LABS: Basophils # 0.1 K/mm3 (0-0.2); Basophils % 1.2 % (0.1-2.0); Eosinophils # 0.2 K/mm3 (0.0-0.4); Eosinophils % 3.8 % (0.1-12.0); Hematocrit 47.9 % (37.0-47.0); Hemoglobin 15.4 g/dL (12.2-16.2); Lymphocytes # 1.8 K/mm3 (0.7-4.5); Lymphocytes % 28.5 % (10-50); Mean Corpuscular HGB Conc 32.2 g/dL (31.8-35.4); Mean Platelet Volume 8.2 fl (7.4-10.4); Monocytes # 0.3 K/mm3 (0.1-1.0); Neutrophils # 3.8 K/mm3 (1.8-7.8); Neutrophils % 61.5 % (37.0-80.0); Platelet Count 198 K/mm3 (142-424); Red Blood Count 5.51 M/mm3 (4.20-5.40); White Blood Count 6.2 K/mm3 (4.8-10.8)
[2024-04-04 08:10] LABS: Albumin Level 4.2 g/dl (3.5-5.0); Chloride 102 mmol/L (98-107); Potassium 4.1 mmoL/L (3.5-5.1); Sodium 141 mmol/L (136-145)
[2024-04-04 08:12] LABS: Blood Urea Nitrogen 23 mg/dl (7-17); Estimated Glomerular Filt Rate 61 ml/min (>60)
[2024-04-04 08:13] LABS: Alanine Aminotransferase 38 U/L (12-78); Albumin/Globulin Ratio 1.6 (1.1-1.8); Alkaline Phosphatase 64 U/L (38-126); Anion Gap 10.1 mEq/L (5-15); Aspartate Amino Transferase 37 U/L (14-36); Bilirubin,Total 0.6 mg/dl (0.2-1.3); Calcium 9.6 mg/dl (8.4-10.2); Carbon Dioxide 33 mmol/L (22.0-30.0); Chol/HDL Ratio 3.5 (1-3.5); Cholesterol 123 mg/dl (140-200); GFR (African American) 74 ML/MIN (>60); Globulin 2.7 g/dL (1.3-3.2); Glucose 164 mg/dl (74-100); HDL Cholesterol 35 mg/dl (40-60); Total Protein,Serum 6.9 g/dl (6.3-8.2); Triglycerides 287 mg/dl (30-150); VLDL Cholesterol 57 mg/dL (0-40)
[2024-04-04 08:24] LABS: Direct LDL Cholesterol 36.33 mg/dL (100-129)
[2024-04-04 08:26] LABS: Hemoglobin A1C 7.8 % (4.0-6.0)
[2024-04-04 08:30] LABS: Triiodothryronine (T3) Uptake 35 % (23.5-40.5)
[2024-04-04 08:31] LABS: Free Thyroxine Index 3.4 ug/dL (5.93-13.13); T4 (Thyroxine) 9.8 ug/dl (5.53-11.0)
[2024-04-04 08:44] LABS: Thyroid Stimulating Hormone 1.52 uIU/mL (0.465-4.68)
[2024-04-04 08:49] LABS: 25-OH Vitamin D, Total 45.7 ng/mL (30-100)
== END 2024-04-04 23:59 | disposition home or self-care (01) ==
LOC: LAB 07:12
PROVIDERS: PCP Internal Medicine Adolescent Medicine; Visit Provider Internal Medicine Adolescent Medicine
DX: E11.9 Type 2 diabetes mellitus without complications (principal); E78.5 Hyperlipidemia, unspecified; E03.9 Hypothyroidism, unspecified; E55.9 Vitamin D deficiency, unspecified; Z79.85 Long-term (current) use of injectable non-insulin antidiabetic drugs
CPT/HCPCS: 36415; 80050; 80053; 80061; 82306; 83036; 84436; 84443; 84479; 85025

== ENCOUNTER 2024-07-04 07:18 | Outpatient (CLI) | payer OTHER, MEDICARE, SELFPAY ==
[2024-07-04 07:57] LABS: Basophils # 0.1 K/mm3 (0-0.2); Eosinophils # 0.2 K/mm3 (0.0-0.4); Eosinophils % 3.4 % (0.1-12.0); Hematocrit 47.2 % (37.0-47.0); Hemoglobin 15.7 g/dL (12.2-16.2); Lymphocytes # 1.5 K/mm3 (0.7-4.5); Mean Corpuscular HGB Conc 33.4 g/dL (31.8-35.4); Mean Corpuscular Hemoglobin 27.8 pg (27.0-31.2); Mean Corpuscular Volume 83.2 fl (81-99); Mean Platelet Volume 7.9 fl (7.4-10.4); Monocytes # 0.3 K/mm3 (0.1-1.0); Monocytes % 4.9 % (1.7-9.3); Neutrophils # 4.1 K/mm3 (1.8-7.8); Neutrophils % 66.7 % (37.0-80.0); Platelet Count 167 K/mm3 (142-424); Red Blood Count 5.67 M/mm3 (4.20-5.40); Red Cell Distribution Width 15.1 % (11.5-17.5); White Blood Count 6.1 K/mm3 (4.8-10.8)
[2024-07-04 08:30] LABS: Alanine Aminotransferase 29 U/L (12-78); Albumin Level 3.9 g/dl (3.5-5.0); Albumin/Globulin Ratio 1.6 (1.1-1.8); Alkaline Phosphatase 65 U/L (38-126); Anion Gap 10.5 mEq/L (5-15); Aspartate Amino Transferase 31 U/L (14-36); Bilirubin,Total 0.5 mg/dl (0.2-1.3); Blood Urea Nitrogen 16 mg/dl (7-17); Calcium 9.7 mg/dl (8.4-10.2); Carbon Dioxide 34 mmol/L (22.0-30.0); Chloride 101 mmol/L (98-107); Chol/HDL Ratio 2.7 (1-3.5); Cholesterol 96 mg/dl (140-200); Estimated Glomerular Filt Rate 70 ml/min (>60); GFR (African American) 85 ML/MIN (>60); Globulin 2.4 g/dL (1.3-3.2); Glucose 144 mg/dl (74-100); HDL Cholesterol 36 mg/dl (40-60); Magnesium 1.9 mg/dl (1.6-2.3); Potassium 4.5 mmoL/L (3.5-5.1); Sodium 141 mmol/L (136-145); Total Protein,Serum 6.3 g/dl (6.3-8.2); Triglycerides 178 mg/dl (30-150); VLDL Cholesterol 36 mg/dL (0-40)
[2024-07-04 08:41] LABS: Direct LDL Cholesterol 35.76 mg/dL (100-129)
[2024-07-04 08:49] LABS: 25-OH Vitamin D, Total 44.3 ng/mL (30-100)
[2024-07-04 09:00] LABS: Thyroid Stimulating Hormone 0.02 uIU/mL (0.465-4.68)
[2024-07-04 09:19] LABS: Vitamin B12 919 pg/mL (239-931)
== END 2024-07-04 23:59 | disposition home or self-care (01) ==
LOC: LAB 07:20
PROVIDERS: PCP Internal Medicine Adolescent Medicine; Visit Provider Internal Medicine Adolescent Medicine
DX: E78.5 Hyperlipidemia, unspecified (principal); E03.9 Hypothyroidism, unspecified; E55.9 Vitamin D deficiency, unspecified; E11.69 Type 2 diabetes mellitus with other specified complication; E83.42 Hypomagnesemia
CPT/HCPCS: 36415; 80050; 80053; 80061; 82306; 82607; 83036; 83735; 84443; 85025

== ENCOUNTER 2024-11-03 09:22 | Outpatient (CLI) | payer MEDICARE, OTHER, SELFPAY ==
[2024-11-03 09:53] LABS: Basophils # 0.1 K/mm3 (0-0.2); Basophils % 0.8 % (0.1-2.0); Eosinophils # 0.2 K/mm3 (0.0-0.4); Hematocrit 46.2 % (37.0-47.0); Mean Corpuscular Volume 85.6 fl (81-99); Monocytes # 0.4 K/mm3 (0.1-1.0); Platelet Count 190 K/mm3 (142-424)
[2024-11-03 09:57] LABS: Eosinophils % 3.7 % (0.1-12.0); Hemoglobin 15.1 g/dL (12.2-16.2); Lymphocytes # 1.8 K/mm3 (0.7-4.5); Lymphocytes % 29.6 % (10-50); Mean Corpuscular HGB Conc 32.7 g/dL (31.8-35.4); Mean Platelet Volume 9.8 fl (7.4-10.4); Monocytes % 6.2 % (1.7-9.3); Neutrophils # 3.6 K/mm3 (1.8-7.8); Neutrophils % 59.2 % (37.0-80.0); Red Cell Distribution Width 15.9 % (11.5-17.5); White Blood Count 6.1 K/mm3 (4.8-10.8)
[2024-11-03 10:30] LABS: Alanine Aminotransferase 39 U/L (12-78); Albumin Level 4.3 g/dl (3.5-5.0); Alkaline Phosphatase 59 U/L (38-126); Anion Gap 8.2 mEq/L (5-15); Aspartate Amino Transferase 40 U/L (14-36); Bilirubin,Total 0.5 mg/dl (0.2-1.3); Blood Urea Nitrogen 24 mg/dl (7-17); Carbon Dioxide 33 mmol/L (22.0-30.0); Chloride 103 mmol/L (98-107); Cholesterol 113 mg/dl (140-200); Estimated Glomerular Filt Rate 61 ml/min (>60); GFR (African American) 74 ML/MIN (>60); Globulin 2.2 g/dL (1.3-3.2); Glucose 129 mg/dl (74-100); HDL Cholesterol 38 mg/dl (40-60); Magnesium 1.9 mg/dl (1.6-2.3); Potassium 4.2 mmoL/L (3.5-5.1); Sodium 140 mmol/L (136-145); Total Protein,Serum 6.5 g/dl (6.3-8.2); Triglycerides 237 mg/dl (30-150); VLDL Cholesterol 47 mg/dL (0-40)
[2024-11-03 10:40] LABS: Direct LDL Cholesterol 32.98 mg/dL (100-129)
[2024-11-03 10:47] LABS: Free Thyroxine Index 2.2 ug/dL (5.93-13.13); T4 (Thyroxine) 7.4 ug/dl (5.53-11.0); Triiodothryronine (T3) Uptake 30 % (23.5-40.5)
[2024-11-03 10:49] LABS: 25-OH Vitamin D, Total 34.4 ng/mL (30-100)
[2024-11-03 11:25] LABS: Vitamin B12 > 1000 pg/mL (239-931)
== END 2024-11-03 23:59 | disposition home or self-care (01) ==
LOC: LAB 09:27
PROVIDERS: PCP Internal Medicine Adolescent Medicine; Visit Provider Internal Medicine Adolescent Medicine
DX: E78.5 Hyperlipidemia, unspecified (principal); E11.69 Type 2 diabetes mellitus with other specified complication; E55.9 Vitamin D deficiency, unspecified; E03.9 Hypothyroidism, unspecified
CPT/HCPCS: 36415; 80053; 80061; 82306; 82607; 83036; 83735; 84436; 84443; 84479; 85025

== ENCOUNTER 2024-12-08 09:27 | Outpatient (CLI) | payer MEDICARE, OTHER, SELFPAY ==
--- NOTE | 2024-12-08 09:38 | XR_ITS ---
FINAL REPORT CLINICAL HISTORY: .pain FINDINGS: RIGHT HAND Three views demonstrate no acute fracture or dislocation. There are mild to moderate hypertrophic changes of the basilar joint. Lucency is seen within the medial aspect of the distal radius measuring up to 8 mm likely due to degenerative subchondral cyst. There is narrowing of the radiocarpal joint. IMPRESSION: Degenerative changes without acute bony abnormality. Reviewed, Interpreted and Dictated by Jose Zepeda MD Transcribed by Melba Cortes Authenticated and [facility]
--- NOTE | 2024-12-08 09:38 | XR_ITS ---
FINAL REPORT CLINICAL HISTORY: PAIN FINDINGS: LEFT HAND Three views demonstrate no acute fracture or dislocation. There are advanced hypertrophic changes of osteoarthritis at the basilar joint. Degenerative cysts are seen in the trapezium and base of the first metacarpal. There is also a degenerative cyst in the ulnar styloid. IMPRESSION: Degenerative changes without acute bony abnormality. Reviewed, Interpreted and Dictated by Jose Zepeda MD Transcribed by Melba Cortes Authenticated and [facility]
== END 2024-12-08 23:59 | disposition home or self-care (01) ==
LOC: RAD 09:30
PROVIDERS: PCP Internal Medicine Adolescent Medicine; Visit Provider Internal Medicine Adolescent Medicine
DX: M79.641 Pain in right hand (principal); M79.642 Pain in left hand
CPT/HCPCS: 73130

== ENCOUNTER 2025-03-24 10:45 | Outpatient (RCR) | payer MEDICARE, OTHER, SELFPAY ==
--- NOTE | 2025-03-24 11:37 | HMH.OTOPEV ---
OT Inpatient Evaluation Rehab OT Outpatient Eval Start: 03/24/25 11:24 Freq: Status: Active Protocol: Document 03/24/25 11:24 RMARSHALL (Rec: 03/24/25 11:37 [facility] [id number]) E-signed By Sanjeev Kirk, OT Outpatient Therapy Subjective History Subjective History Pt is a 74 year old female who reports to therapy for evaluation of bilateral shoulders and right wrist. Pt recently had carpal tunnel surgery on March 03 to right wrist and plans to have left CTR on April 07. Pt is right hand dominant. Pt demonstrates with decreased R wrist AROM and strength. She also has decreased merchandiser strength with right hand. As for bilateral shoulder's, pt reports pain beginning in July 2024. She does not recall a specific injury causing her pain to begin at either shoulder. Pt's AROM at bilateral shoulders are within functional limits. However, pt's strength is limited. Pt will continue to be seen twice a week in order to address all deficits. Short term goals: 1. 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 2. Pt will increase R wrist extension to 65 degrees degrees to complete upper body dressing independently ~ 50% of the time.. 3. Pt will increase strength to 3+/5 throughout right wrist in order to complete heavier household tasks ( laundry, mopping, vacuuming) independently ~50% of the time. 4. Pt will verbalize decreased pain levels at worst in R wrist to a 5/10 in order to complete daily ADLs independently ~50% of the time. 5. Pt will demonstrate improved endurance by completing right wrist exercises for ~10 minutes prior to rest break in order to increase his tolerance for daily work activities. 6. Pt will demonstrate independence with HEP of AAROM exercises to increase overall functional use of Right wrist in daily activities ~75% of the time. 7. Pt will improve right hand merchandiser strength to 15 lbs in order to be able to open jars/containers independently ~50% of the time. 8. Pt will increase strength to 4/5 throughout B/L shoulders in order to complete heavier household tasks (laundry, mopping, vacuuming) independently ~50% of the time. 9. Pt will verbalize decreased pain levels at worst in B/L shoulders to a 5/10 in order to complete daily ADLs independently ~50% of the time. 10. Pt will demonstrate improved endurance by completing B/L shoulder exercises for ~20 minutes prior to rest break in order to increase his tolerance for daily work activities. 11. Pt will demonstrate independence with HEP of AAROM exercises to increase overall functional use of B/L shoulder in daily activities ~75% of the time. prison goals: 1. Pt will increase right wrist flexion to 70 degrees in order to complete daily insurance defense attorney independently ~75% of the time. 2. Pt will increase R wrist extension to 70 degrees degrees to complete upper body dressing independently ~ 75% of the time. 3. Pt will increase strength to 4-/5 throughout right wrist in order to complete heavier household tasks ( laundry, mopping, vacuuming) independently ~75% of the time. 4. Pt will verbalize decreased pain levels at worst in R wrist to a 3/10 in order to complete daily ADLs independently ~75% of the time. 5. Pt will demonstrate improved endurance by completing right wrist exercises for ~20 minutes prior to rest break in order to increase his tolerance for daily work activities. 6. Pt will demonstrate independence with HEP of AAROM exercises to increase overall functional use of Right wrist in daily activities ~100% of the time. 7. Pt will improve right hand merchandiser strength to 25 lbs in order to be able to open jars/containers independently ~75% of the time. 8. Pt will increase strength to 4+/5 throughout B/L shoulders in order to complete heavier household tasks (laundry, mopping, vacuuming) independently ~50% of the time. 9. Pt will verbalize decreased pain levels at worst in B/L shoulders to a 3/10 in order to complete daily ADLs independently ~50% of the time. 10. Pt will demonstrate improved endurance by completing B/L shoulder exercises for ~30 minutes prior to rest break in order to increase his tolerance for daily work activities. 11. Pt will demonstrate independence with HEP of AAROM exercises to increase overall functional use of B/L shoulder in daily activities ~90% of the time. New diagnosis of No cancer in past 12 months? Chief Complaint Pain,Stiff,Weakness,Decreased Preparation Operator Strength Symptom Type Ache,Throb,Sharp,Dull Symptoms Relieved By Rest/Positioning Symptoms Aggravated Physical Activity,Lifting By Prior Functional None Limitations Current Functional Reaching,Lifting,Housework,Dressing,Driving,Sleeping, Limitations Recreation Activity Symptom Description Constant but Variable Level of pain today 1 (0-10) Pain scale - at its 1 best (0-10) Pain scale - at its 10 worst (0-10) Shoulder/Elbow Eval Shoulder Objective Measurements Shoulder MMT Bilateral Shoulder Abduction 4- Good- Strength Grade Shoulder Flexion 4- Good- Strength Grade Shoulder External 4- Good- Rotation Strength Grade Shoulder Internal 4- Good- Rotation Strength Grade Shoulder Strength Sitting Patient Testing Position Elbow Objective Measurements Wrist/Hand Eval Wrist Range of Motion Right Wrist Extension 60 Active Range of Motion (degrees) Wrist Flexion Active 60 Range of Motion ( degrees) Wrist Radial 20 Deviation Active Range of Motion ( degrees) Wrist Ulnar 30 Deviation Active Range of Motion ( degrees) Wrist Manual Muscle Testing Right Wrist Extension 3 Fair Strength Grade Wrist Flexion 3 Fair Strength Grade Wrist Radial 3 Fair Deviation Strength Grade Wrist Ulnar 3 Fair Deviation Strength Grade Forearm Supination 3 Fair Strength Grade Forearm Pronation 3 Fair Strength Grade Preparation Operator/Pinch Strength Preparation Operator Strength 5 Measurement (lbs) QuickDASH Activities Please rate your ability to do the following activities in the last week by selecting the number below the appropriate response. 1. Open a tight or Severe difficulty new jar. 2. Do heavy Severe difficulty insurance defense attorney (e. g., wash murphy, floors). 3. Carry a shopping Moderate difficulty bag or briefcase. 4. Wash your back. Severe difficulty 5. Use a knife to Severe difficulty cut food. 6. Recreational Severe difficulty activities in which you take some force or impact through your arm, shoulder, or hand (e.g., golf, hammering, tennis, etc.). 7. During the past Quite a bit week, to what extent has your arm, shoulder or hand problem interfered with your normal social activities with family, friends , neighbors or groups? 8. During the past Very limited week, were you limited in your work or other regular daily activites as a result of your arm, shoulder or hand problem? 9. Arm, shoulder or Severe hand pain. 10. Tingling (pins Moderate and needles) in your arm, shoulder or hand. 11. During the past Moderate difficulty week, how much difficulty have you had sleeping because of the pain in your arm, shoulder or hand? Quick DASH 41 OT Outpatient Assessment Impairments Problems/Impairments Palpation Tenderness,Impaired Range of Motion,Impaired Strength,Impaired Endurance,Impaired Lifting,Impaired Dressing,Impaired Household Care,Impaired Recreational Activities,Subjective C/O Pain Prognosis Rehab Potential Good Clinical Impression Consistent with Yes Diagnosis Short Term Goals Number of Weeks See history Residential Counselor Goals Number of Weeks See history Outpatient Therapy Plan of Care Treatment Plan May Include Therapeutic Exercise Yes Including Home Exercise Program Manual Therapy Yes Techniques Neuromuscular Re- Yes education Therapeutic Yes Activities to Return to Previous Functional/Work Level ADL/Self Care Yes Education Thermal Modalities Yes Electrical Yes Stimulation Ultrasound/ Yes Phonophoresis Iontophoresis Yes Parrafin Yes Orthotics/Bracing/ Yes Splinting Massage Yes Eval/Re-Eval Yes Frequency Times per week 2 Duration Number of Weeks 6 Addendums This patient is a No candidate for social or vocational rehab ? Patient/Guardian Yes verbally acknowledges understanding of treatment program and consents to further treatment? Patient/Guardian Yes verbally acknowledges understanding of diagnosis, prognosis and goals for treatment? Eval Complexity OT Charge 18098 - Moderate Complexity PHYSICIAN CERTIFICATION: I certify the specified therapy services for Sanaz Ann Santosh are required, authorized, and reviewed every 30 days.
== END 2025-03-24 23:59 | disposition home or self-care (01) ==
LOC: OT 10:45
PROVIDERS: PCP Internal Medicine Adolescent Medicine; Visit Provider Internal Medicine Adolescent Medicine
DX: G56.03 Carpal tunnel syndrome, bilateral upper limbs (principal); M25.511 Pain in right shoulder; M25.512 Pain in left shoulder
CPT/HCPCS: 97166

== ENCOUNTER 2025-04-06 11:00 | Outpatient (RCR) | payer MEDICARE, OTHER, SELFPAY | END 2025-04-06 23:59 | disposition home or self-care (01) | LOC: OT 11:00 | PROVIDERS: PCP Internal Medicine Adolescent Medicine; Visit Provider Internal Medicine Adolescent Medicine | DX: G56.03 Carpal tunnel syndrome, bilateral upper limbs (principal); M25.511 Pain in right shoulder; M25.512 Pain in left shoulder | CPT/HCPCS: 97032; 97140; 97530 ==

== ENCOUNTER 2025-05-12 09:16 | Outpatient (CLI) | payer MEDICARE, OTHER, SELFPAY ==
--- OUTSIDE RECORDS SUMMARY | 2025-05-12 09:53 | XMS_ITS | Clinical Summary ---
Author Organization [facility] Address [address] [place] [address] Care Team Providers Care Curing Press Maintainer Name Role Phone Kevin Dos Santos MD Primary Care Provider + [phone] Sara Latham DIRECTOR PRODUCT MANAGEMENT Unavailable [phone] Allergies Active Allergy Reactions Criticality Noted Date Comments Codeine Other - please docum ent in the comment field,Unknown - Patient states they do not know rxn details Low 05/17/2015 emotional, crying Doxycycline Swelling,Unknown - P atient states they do not know rxn details High 05/17/2015 Medications Aspirin Buf,CaCarb-MgC arb-MgO, 81 MG tablet 8 Active cholecalcifero l (Vitamin D3) 1.25 MG (00347 UT) capsule 1 cap(s) orally 2 times a week Active Jardiance 10 MG 1 Active Victoza 18 MG/3ML injection INJECT 2.4 MG SUBCUTANEOUSLY EVERY DAY 1 Active omeprazole (PriLOSEC) [address] capsule Take 20 mg by mouth 1 (one) time each day. 1 Active rosuvastatin (Crestor) 20 MG tablet 1 Active triamterene-hy droCHLOROthiaz maryan (Dyazide) 37.5-25 MG capsule Take 1 capsule by mouth 1 (one) time each day. 1 Active diclofenac (Voltaren) 1 % topical gel Place on the skin 2 (two) times a day. Apply as directed to right knee 150 g 2 3 Active levothyroxine (Synthroid, Levoxyl) 175 MCG tablet Take 1 tablet (175 mcg) by mouth 1 (one) time each day. 4 Active busPIRone (Buspar) 10 MG tablet Take 1 tablet (10 mg) by mouth 2 (two) times a day. 4 Active Accu-Chek Simi Plus test strip USE TO TEST BLOOD SUGAR TWICE DAILY DIRECTED 4 Active Active Problems Problem Noted Date Diagnosed Date Malignant neoplasm of overla pping sites of right breast in female, estrogen receptor positive 06/13/2021 Cancer Staging:Clinical stage from 01/17/2010:Stage IIA(T2, N0, M0) - Unsigned S/P total hip arthroplasty 05/19/2016 Degenerative joint disease of left hip 6 Knee osteoarthritis 03/24/2016 Adenocarcinoma of right breast 10/14/2015 Overview (06/13/2022): Malignant neoplasm of unspecified site of right female breast Social History Tobacco Use Types Packs/Day Years Used Date Smoking Tobacco: Former Cigarettes Q uit: 1989 Smokeless Tobacco: Never Tobacco Cessation:Counseling Given: Not Answered Alcohol Use Standard Drinks/Week Comments No 0 (1 standard drink = 0.6 oz pur e alcohol) PHQ-2 Answer Date Recorded Patient Health Questionnaire-2 Score 0 07/15/2024 PHQ-9 Answer Date Recorded Patient Health Questionnaire-9 Score 0 07/15/2024 Comments No Sex and Gender Information Value Date Recorded Sex Assigned at Not on file Legal Sex Female 6:03 PM EDT Gender Identity Not on file Sexual Orientation Not on file Last Filed Vital Signs Vital Sign Reading Time Taken Comments Blood Pressure 131/80 07/15/2024 9:34 AM EST Pulse 80 07/15/2024 9:34 AM EST Temperature 36.7 C (98 F) 07/15/2024 9:34 AM EST Respiratory Rate 20 06/13/2022 10:1 8 AM EDT Oxygen Saturation 97% 07/15/2024 9:34 AM EST Inhaled Oxygen Concentration - - Weight 90.7 kg (199 lb 15.3 oz) 07/15/2024 9:34 AM EST Height 167.6 cm (5' 6 ) 07/15/2024 9:34 AM EST Body Mass Index 32.27 07/15/2024 9:34 AM EST Plan of Treatment Upcoming Encounters Date Type Department Care Team (Late st Contact Info) Description 07/15/2025 11:00 AM EST Office Visit [facility] [address] [place] [address] Sara Latham, DIRECTOR PRODUCT MANAGEMENT [address] [place] [address] Health Maintenance Due Date Last Done Comments [facility]-Bone Density Scan 1950 [facility]-Hepatitis C Screening 1950 [facility]-Infant/Child/Adol SDOH Screenings 1950 [facility]- SDOH Screenings 11/02/1967 [facility]-Adult SDOH Screenings 11/02/1967 [facility]-DTaP,Tdap,and Td Vaccine s (1 - Tdap) 1968 [facility]-Zoster Vaccines (1 of 2) 1968 CT Colonography 1994 Colonoscopy 1994 FIT-DNA 1994 FIT 1994 FOBT 1994 Sigmoidoscopy 1994 [facility]-Colorectal Cancer Screening 1994 [facility]-Pneumococcal Vaccine: 50 + Years (2 of 2 - PCV) 07/12/2019 07/12/2018 [facility]-RSV Vaccine: 60+ Years o r (1 - 1-dose 75+ series) 2024 [id number] Vaccine ( season) 2025 07/29/2021, 10/01/2020, 08/31/2020 [facility]-Influenza Vaccine (#1) 2025 [facility]-Depression Screening 07/15/2025 024, 07/15/2024 [facility]-Hepatitis A Vaccines Aged Out 019, 07/12/2018 No longer eligible based on patient's age to complete this topic [facility]-Obesity Intervention Completed 04/23/2023 HPV Vaccines Aged Out No longer eligi ble based on patient's age to complete this topic [facility]-HIB Vaccines Aged Out No longer e ligible based on patient's age to complete this topic [facility]-IPV Vaccines Aged Out No longer e ligible based on patient's age to complete this topic [facility]-Rotavirus Vaccines Aged Out No lo nger eligible based on patient's age to complete this topic Insurance [facility] [place] [address] Care Teams Curing Press Maintainer Relationship Specialty Start Date End Date Kevin Dos Santos MD [address] [facility] [address] [place] [address] PCP - General 01/07/21 Sara Latham, DIRECTOR PRODUCT MANAGEMENT [address] [facility] [address] [place] [address] Nurse Practitioner Internal Medicine 06/13/21
[2025-05-12 09:55] LABS: Hematocrit 47.6 % (37.0-47.0); Hemoglobin 15.0 g/dL (12.2-16.2); Immature Granulocytes % 0.3 %; Mean Corpuscular HGB Conc 31.5 g/dL (31.8-35.4); Mean Corpuscular Hemoglobin 26.7 pg (27.0-31.2); Mean Corpuscular Volume 84.7 fl (81-99); Nucleated Red Blood Cells % 0 %; Platelet Count 203 K/mm3 (142-424); Red Blood Count 5.62 M/mm3 (4.20-5.40); Red Cell Distribution Width-SD 50.3 fL; White Blood Count 5.8 K/mm3 (4.8-10.8)
[2025-05-12 10:24] LABS: Alanine Aminotransferase 23 U/L (12-78); Albumin Level 4.1 g/dl (3.5-5.0); Albumin/Globulin Ratio 1.6 (1.1-1.8); Alkaline Phosphatase 58 U/L (38-126); Anion Gap 9.1 mEq/L (5-15); Aspartate Amino Transferase 30 U/L (14-36); Bilirubin,Total 0.5 mg/dl (0.2-1.3); Blood Urea Nitrogen 16 mg/dl (7-17); Calcium 9.7 mg/dl (8.4-10.2); Carbon Dioxide 32 mmol/L (22.0-30.0); Chloride 103 mmol/L (98-107); Creatinine,Serum 0.80 mg/dl (0.52-1.04); Estimated Glomerular Filt Rate 70 ml/min (>60); GFR (African American) 85 ML/MIN (>60); Globulin 2.6 g/dL (1.3-3.2); Glucose 117 mg/dl (74-100); Potassium 4.1 mmoL/L (3.5-5.1); Sodium 140 mmol/L (136-145); Total Protein,Serum 6.7 g/dl (6.3-8.2)
[2025-05-12 10:41] LABS: 25-OH Vitamin D, Total 35.8 ng/mL (30-100)
[2025-05-12 10:46] LABS: Free Thyroxine Index 3.2 ug/dL (5.93-13.13); T4 (Thyroxine) 8.8 ug/dl (5.53-11.0); Triiodothryronine (T3) Uptake 36 % (23.5-40.5)
[2025-05-12 11:00] LABS: Thyroid Stimulating Hormone 4.10 uIU/mL (0.465-4.68)
[2025-05-12 12:54] LABS: Hemoglobin A1C 6.5 % (4.0-6.0)
== END 2025-05-12 23:59 | disposition home or self-care (01) ==
LOC: LAB 09:17
PROVIDERS: PCP Internal Medicine Adolescent Medicine; Visit Provider Internal Medicine Adolescent Medicine
DX: E55.9 Vitamin D deficiency, unspecified (principal); I10 Essential (primary) hypertension; E11.69 Type 2 diabetes mellitus with other specified complication; E78.5 Hyperlipidemia, unspecified; E03.9 Hypothyroidism, unspecified
CPT/HCPCS: 36415; 80053; 82306; 83036; 84436; 84443; 84479; 85025

== ENCOUNTER 2025-05-26 13:00 | Outpatient (RCR) | payer MEDICARE, OTHER, SELFPAY ==
--- NOTE | 2025-07-01 11:34 | HMH.RHREAS ---
Rehab Reassessment Rehab OP Re-assessment Start: 05/06/25 11:54 Freq: Status: Discharge Protocol: Document 05/06/25 11:54 SONAHERBERTH (Rec: 05/06/25 12:03 SONAHERBERTH [id number]) E-signed By Nara Jaimes, OT Rehab Re-assessment Subjective Subjective My shoulders have been hurting. Objective Objective Notes Patient is a 74-year-old female presenting for evaluation of bilateral shoulders and right wrist. She underwent right carpal tunnel release on March 03, 2025 and is scheduled for left CTR on April 07, 2025. She is right-hand dominant. On assessment, patient demonstrates Bilateral wrist AROM is within functional limits. Regarding her shoulders, patient reports pain beginning in July 2024 without a specific mechanism of injury. Bilateral shoulder AROM is within functional limits; however, strength is limited. Patient has not returned to clinic for 29 days since her last re-assessment, reporting she was caring for her and unable to attend sessions or consistently complete her HEP. She continues to experience daily bilateral shoulder pain. Assessment Progress Assessment Slower Than Expected Assessment Notes Pt presents B shoulder strength with ongoing pain. Functional progress has been impacted by missed therapy sessions and poor HEP adherence. Continued skilled OT services are indicated to address deficits in strength, mobility, and pain management to improve independence with ADLs/IADLs. Patient reported no s/s of pain or limited AROM of B UE Wrist at this time. Patient requested to focus on pain in B UE Shoulder for additional OT Patient Goals OT Short Term Short term goals: Patient Goals 4. Pt will verbalize decreased pain levels at worst in B shoulders to a 5/10 in order to complete daily ADLs independently ~50% of the time. 6. Pt will demonstrate independence with HEP of AAROM exercises to increase overall functional use of Right shoulder in daily activities ~75% of the time. 7. Pt will improve right hand general accounting clerk strength to 15 lbs in order to be able to open jars/containers independently ~50% of the time. 8. Pt will increase strength to 4/5 throughout B/L shoulders in order to complete heavier household tasks (laundry, mopping, vacuuming) independently ~50% of the time. 9. Pt will verbalize decreased pain levels at worst in B/L shoulders to a 5/10 in order to complete daily ADLs independently ~50% of the time. 10. Pt will demonstrate improved endurance by completing B/L shoulder exercises for ~20 minutes prior to rest break in order to increase his tolerance for daily work activities. 11. Pt will demonstrate independence with HEP of AAROM exercises to increase overall functional use of B/L shoulder in daily activities ~75% of the time. 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 Pt will verbalize decreased pain levels at worst in B shoulders to a 4/10 in order to complete daily ADLs independently ~50% of the time. 6. Pt will demonstrate independence with HEP of AAROM exercises to increase overall functional use of Right shoulder in daily activities ~90% of the time. 7. Pt will improve right hand general accounting clerk strength to 15 lbs in order to be able to open jars/containers independently ~50% of the time. 8. Pt will increase strength to 4+/5 throughout B/L shoulders in order to complete heavier household tasks (laundry, mopping, vacuuming) independently ~50% of the time. 9. Pt will verbalize decreased pain levels at worst in B/L shoulders to a 3/10 in order to complete daily ADLs independently ~50% of the time. 10. Pt will demonstrate improved endurance by completing B/L shoulder exercises for ~30 minutes prior to rest break in order to increase his tolerance for daily work activities. 11. Pt will demonstrate independence with HEP of AAROM exercises to increase overall functional use of B/L shoulder in daily activities ~90% of the time. Plan Plan Continue Plan of Care Frequency of Therapy 2x/wk Duration of Therapy 4 weeks Therapeutic Exercise Yes Including Home Exercise Program Manual Therapy Yes Techniques Therapeutic Yes Activities to Return to Previous Functional/Work Level ADL/Self Care Yes Education Thermal Modalities Yes Electrical Yes Stimulation Ultrasound/ Yes Phonophoresis Iontophoresis Yes Eval/Re-Eval Yes Time and Billing Re-Eval Time 10 Re-Eval Billing 1 Units Charge for OT Yes reassessment? PHYSICIAN CERTIFICATION: I certify the specified therapy services for Sanaz Frost are required, authorized, and reviewed every 30 days.
--- NOTE | 2025-07-02 14:17 | [facility].RHREAS ---
Rehab Reassessment Rehab OP Re-assessment Start: 05/06/25 11:54 Freq: Status: Discharge Protocol: Document 05/06/25 11:54 SONAHERBERTH (Rec: 05/06/25 12:03 SONAHERBERTH [id number]) E-signed By Nara Jaimes, OT Rehab Re-assessment Subjective Subjective My shoulders have been hurting. Objective Objective Notes Patient is a 74-year-old female presenting for evaluation of bilateral shoulders and right wrist. She underwent right carpal tunnel release on March 03, 2025 and is scheduled for left CTR on April 07, 2025. She is right-hand dominant. On assessment, patient demonstrates Bilateral wrist AROM is within functional limits. Regarding her shoulders, patient reports pain beginning in July 2024 without a specific mechanism of injury. Bilateral shoulder AROM is within functional limits; however, strength is limited. Patient has not returned to clinic for 29 days since her last re-assessment, reporting she was caring for her and unable to attend sessions or consistently complete her HEP. She continues to experience daily bilateral shoulder pain. Assessment Progress Assessment Slower Than Expected Assessment Notes Pt presents B shoulder strength with ongoing pain. Functional progress has been impacted by missed therapy sessions and poor HEP adherence. Continued skilled OT services are indicated to address deficits in strength, mobility, and pain management to improve independence with ADLs/IADLs. Patient reported no s/s of pain or limited AROM of B UE Wrist at this time. Patient requested to focus on pain in B UE Shoulder for additional OT Patient Goals OT Short Term Short term goals: Patient Goals 4. Pt will verbalize decreased pain levels at worst in B shoulders to a 5/10 in order to complete daily ADLs independently ~50% of the time. 6. Pt will demonstrate independence with HEP of AAROM exercises to increase overall functional use of Right shoulder in daily activities ~75% of the time. 7. 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 8. Pt will increase strength to 4/5 throughout B/L shoulders in order to complete heavier household tasks (laundry, mopping, vacuuming) independently ~50% of the time. 9. Pt will verbalize decreased pain levels at worst in B/L shoulders to a 5/10 in order to complete daily ADLs independently ~50% of the time. 10. Pt will demonstrate improved endurance by completing B/L shoulder exercises for ~20 minutes prior to rest break in order to increase his tolerance for daily work activities. 11. Pt will demonstrate independence with HEP of AAROM exercises to increase overall functional use of B/L shoulder in daily activities ~75% of the time. 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 Pt will verbalize decreased pain levels at worst in B shoulders to a 4/10 in order to complete daily ADLs independently ~50% of the time. 6. Pt will demonstrate independence with HEP of AAROM exercises to increase overall functional use of Right shoulder in daily activities ~90% of the time. 7. 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 8. Pt will increase strength to 4+/5 throughout B/L shoulders in order to complete heavier household tasks (laundry, mopping, vacuuming) independently ~50% of the time. 9. Pt will verbalize decreased pain levels at worst in B/L shoulders to a 3/10 in order to complete daily ADLs independently ~50% of the time. 10. Pt will demonstrate improved endurance by completing B/L shoulder exercises for ~30 minutes prior to rest break in order to increase his tolerance for daily work activities. 11. Pt will demonstrate independence with HEP of AAROM exercises to increase overall functional use of B/L shoulder in daily activities ~90% of the time. Plan Plan Continue Plan of Care Frequency of Therapy 2x/wk Duration of Therapy 4 weeks Therapeutic Exercise Yes Including Home Exercise Program Manual Therapy Yes Techniques Therapeutic Yes Activities to Return to Previous Functional/Work Level ADL/Self Care Yes Education Thermal Modalities Yes Electrical Yes Stimulation Ultrasound/ Yes Phonophoresis Iontophoresis Yes Eval/Re-Eval Yes Time and Billing Re-Eval Time 10 Re-Eval Billing 1 Units Charge for OT Yes reassessment? PHYSICIAN CERTIFICATION: I certify the specified therapy services for Sanaz Frost are required, authorized, and reviewed every 30 days.
== END 2025-05-26 23:59 | disposition home or self-care (01) ==
LOC: OT 13:00
PROVIDERS: Visit Provider Internal Medicine Adolescent Medicine
DX: G56.03 Carpal tunnel syndrome, bilateral upper limbs (principal)
CPT/HCPCS: 97014; 97032; 97110; 97140; 97168; 97530; G0283

== ENCOUNTER 2025-06-18 14:00 | Outpatient (RCR) | payer MEDICARE, OTHER, SELFPAY | END 2025-06-18 23:59 | disposition home or self-care (01) | LOC: OT 14:00 | PROVIDERS: PCP Internal Medicine Adolescent Medicine; Visit Provider Internal Medicine Adolescent Medicine | DX: G56.03 Carpal tunnel syndrome, bilateral upper limbs (principal) | CPT/HCPCS: 97014; 97032; 97110; 97140; 97530; G0283 ==